=== PATIENT | female | born 1965 | race Caucasian/White ===

== ENCOUNTER 2022-09-16 07:53 | Emergency (ER) | payer MEDICAID ==
[~2022-09-16] VITALS: Ht 152.4 cm; Wt 76.0 kg
[~2022-09-16 07:53] MED LIST: HYDR-4001 MT
[2022-09-16 08:30] VITALS: BP 122/83
== END 2022-09-16 09:05 | disposition left against medical advice (07) ==
LOC: ER 08:52
DX: Z53.21 Procedure and treatment not carried out due to patient leaving prior to being seen by health care provider (principal)

== ENCOUNTER 2022-10-22 05:19 | Emergency (ER) | payer MEDICAID, OTHER ==
[~2022-10-22] VITALS: Ht 149.9 cm; Wt 60.9 kg
[2022-10-22] MEDS ORDERED: AMOX1TAB16 PO (06:50)
[2022-10-22] MEDS ORDERED: T3 PO (06:50)
[2022-10-22] MEDS ORDERED: OXYCODONE HCL/ACETAMINOPHEN 5/325MG TABLET PO ONE (07:00)
[2022-10-22 07:10] VITALS: BP 180/108
== END 2022-10-22 07:25 | disposition home or self-care (01) ==
LOC: ER 05:19
DX: K04.7 Periapical abscess without sinus (principal); E11.9 Type 2 diabetes mellitus without complications; I10 Essential (primary) hypertension; Z90.49 Acquired absence of other specified parts of digestive tract; Z98.890 Other specified postprocedural states; Z88.1 Allergy status to other antibiotic agents
CPT/HCPCS: 99283

== ENCOUNTER 2023-10-03 10:27 | Emergency (ER) | payer MEDICAID ==
[~2023-10-03] VITALS: Ht 160 cm; Wt 91.0 kg
[~2023-10-03 10:27] MED LIST changes: +AMOX1TAB16 PO; +T3 PO
[2023-10-03 10:38] VITALS: O2SAT 99
[2023-10-03] MEDS ORDERED: KETOROLAC 60MG/2ML VIAL IM STA (10:56)
[2023-10-03] MEDS ORDERED: NAPR-681 MT (13:17)
[2023-10-03] MEDS ORDERED: SULF1TAB48 MT (13:17)
[2023-10-03] MEDS ORDERED: AMOX1TAB16 MT (13:17)
[2023-10-03] MEDS ORDERED: ERYT1OIN6 EACHEYE (13:17)
[2023-10-03 13:45] VITALS: BP 120/85; PULSE 70; RESP 16; TEMP 98
== END 2023-10-03 14:00 | disposition home or self-care (01) ==
LOC: ER 10:27
DX: H00.015 Hordeolum externum left lower eyelid (principal); H00.035 Abscess of left lower eyelid; E11.9 Type 2 diabetes mellitus without complications
CPT/HCPCS: 70486; 96372; 99285; J1885; Z7610

== ENCOUNTER 2023-12-06 11:57 | Emergency (ER) | payer MEDICAID ==
[~2023-12-06] VITALS: Ht 157.5 cm; Wt 63.5 kg
[~2023-12-06 11:57] MED LIST changes: +AMOX1TAB16 MT; +ERYT1OIN6 EACHEYE; +NAPR-681 MT; +SULF1TAB48 MT
[2023-12-06 12:01] VITALS: O2SAT 99
[2023-12-06 12:46] LABS: BASOPHILS % 1.2 % (0.0-2.0); EOSINOPHILS % 3.4 % (0.0-5.0); HEMATOCRIT. 39.1 % (36.0-48.0); HEMOGLOBIN. 12.9 g/dL (12.0-16.0); MEAN CORPUSCULAR HEMOGLOBIN 31.2 pg (28.0-32.0); MEAN CORPUSCULAR VOLUME 94.7 fL (81.0-99.0); MEAN PLATELET VOLUME 8.8 fl (7.4-10.4); MONOCYTES % 6.6 % (2.0-8.0); NEUTROPHILS % 57.8 % (40.0-76.0); PLATELET 236 x1000/uL (130-400); RED BLOOD CELL COUNT 4.13 mill/uL (4.2-5.4); RED CELL DISTRIBUTION WIDTH 14.3 % (11.6-14.6); WHITE BLOOD COUNT 6.4 x1000/uL (4.5-11.0)
[2023-12-06 12:55] LABS: INR 0.9; PROTHROMBIN TIME 9.9 sec (9.6-11.0)
[2023-12-06 13:06] LABS: ALANINE AMINOTRANSFERASE 10 IU/L (10-49); ALBUMIN 3.8 g/dL (3.2-4.8); ASPARTATE AMINOTRANSFERASE 16 IU/L (<34); BILIRUBIN TOTAL 0.3 mg/dL (0.1-1.0); CALCIUM 8.4 mg/dL (8.7-10.4); CARBON DIOXIDE 24 mEq/L (21-32); CHLORIDE 106 mEq/L (98-107); CREATININE 0.9 mg/dL (0.6-1.0); POTASSIUM 4.4 mEq/L (3.5-5.1); PROTEIN TOTAL 6.3 g/dL (6.0-8.3); SODIUM 136 mEq/L (136-145); TROPONIN I HIGH SENSITIVITY 4 ng/L (3.0-34); UREA NITROGEN BLOOD 13 mg/dL (9-23)
[2023-12-06 13:10] LABS: GLUCOSE 463 mg/dL (70-105)
[2023-12-06] MEDS ORDERED: IBUP-2029 MT (15:36)
[2023-12-06] MEDS: INSULIN REGULAR (HUMULIN R) 300UNITS/3ML VIAL SUBCUT ONE (15:44)
[2023-12-06] MEDS: IBUPROFEN 600MG TABLET PO ONE (15:44)
[2023-12-06 16:01] VITALS: BP 130/74; PULSE 86; RESP 15; TEMP 98.6
[2023-12-06 16:25] LABS: TROPONIN I HIGH SENSITIVITY 4 ng/L (3.0-34)
== END 2023-12-06 16:05 | disposition home or self-care (01) ==
LOC: ER 12:57
DX: R07.89 Other chest pain (principal); E11.65 Type 2 diabetes mellitus with hyperglycemia; I10 Essential (primary) hypertension; Z90.49 Acquired absence of other specified parts of digestive tract; Z79.899 Other long term (current) drug therapy
CPT/HCPCS: 99285; 71045; 80053; 85025; 85610; 84484; 36415; 93005; 96372; J1815